=== PATIENT | female | born 2000 | race Caucasian/White ===

== ENCOUNTER → 2023-11-25 16:10 | Outpatient (REF) | payer BC, SELFPAY ==
[2023-11-29 22:40] LABS: Aptima Media Type MultiTest Swab; Chlamydia trachomatis by TMA Negative (Negative); Neisseria gonorrhoeae by TMA Negative (Negative); Specimen Source Vaginal
== END ==
LOC: CLAB 16:10
PROVIDERS: ATTENDING PHYSICIAN Nurse Practitioner Adult Health
DX: N93.0 Postcoital and contact bleeding (principal)
CPT/HCPCS: 87491; 87591